=== PATIENT | female | born 1960 | race Caucasian/White ===

== ENCOUNTER 2019-07-24 18:33 | Emergency (ER) | payer MEDICARE, MEDICAID ==
--- OUTSIDE RECORDS SUMMARY | 2019-07-24 18:40 | XMS REPORT | Continuity of Care Document ---
:1960 External Reference #:[id number] Author Name Antoine Garcia MD Address [address] [place] [id number] Care Team Providers Name Role Phone Minor Christianson MD # - Care Team Information Animal Researcher [phone] - Neurology Care Team Information Animal Researcher Merlin Hopper MD - Pulmonary Care Team Information Animal Researcher [phone] Disease Problems Active Problems Provider Date Essential hypertension Onset: 03/28/2011 Hyperlipidemia Antoine Garcia MD Onset: 10/20/2011 Asthma without status asthmaticus Antoine Garcia MD Onset: 2011 Depressive disorder Antoine Garcia MD Onset: 10/20/2011 Epilepsy Antoine Garcia MD Onset: 10/20/2011 Osteochondropathy Antoine Garcia MD Onset: 10/20/2011 Migraine without aura, not refractory Antoine Garcia MD Onset: 04/19 Psoriasis Antoine Garcia MD Onset: 11/29/2018 Bladder muscle dysfunction - overactive Antoine Garcia MD Onset: 10/2018 Social History Type Date Description Comments Sex Unknown ETOH Use Denies alcohol use Tobacco Use Start: Unknown Patient has never smoked Smoking Status Reviewed: 06/09/19 Patient has never smoked Allergies, Adverse Reactions, Alerts Active Allergies Reaction Severity Comments Date Penicillin facial swelling 03/09/2010 Sulfa Antibiotics facial swelling 03/09/2010 Nubain "interacts with the seziure 03/09/2010 medications" Medications Active Medications SIG Qnty Indications Ordering Date Provider Lidocaine apply to back for 30units Antoine Garcia 06/09/2019 5% Patches 12 hours and then MD Damaso off for 12 hours Myrbetriq 1 by mouth every N32.81 Antoine Garcia 11/29/2018 50mg Tablets day MD Damaso ER 24HR Calcium 600-D 1 by mouth twice 180tabs Jose01/21/2018 a day MD Damaso [id number] Tablets Flonase Allergy 2 sprays each 16gm 08/01/2017 Relief nostril daily MD Damaso 50mcg/Act Suspension Acidophilus 1 by mouth bid 30caps Jose06/27/2017 Capsules MD Damaso Fibercon 2 by mouth daily 180tabs Jose06/27/2017 625mg Tablets MD Damaso Amitriptyline HCL take one tablet 90tabs G47.00 Jose03/23/2017 25mg by mouth at MD Damaso Tablets bedtime Advair Diskus 1 puff twice a 3units Jose02/19/2017 day MD Damaso 500-50mcg/Dose Aerosol Escitalopram Oxalate take 1 1/2 135tabs F32.9 Jose02/16/2017 tablets by mouth MD Damaso 20mg Tablets once daily Acetaminophen-Codeine 1-2 tabs per 60tabs M54.89 Jose01/05/2016 #3 mouth four times MD Damaso 300-30mg Tablets a day as needed, Reference #: [id number] Biotin 1 po daily 08/09/2015 5000mcg Capsules MD Damaso Nebulizer dx: asthma 1units J45.909 08/09/2015 Device MD Damaso Nebulizer use as needed 1units J45.909 Jose08/09/2015 Kit/Tubing/Mouthpiece with nebulizer MD Damaso treatment dx: Kit asthma Gaviscon 1-2 tabs prn Jose03/10/2015 MD Damaso Heating Pad Dry Heat Xtra large to use 1units 724.5 Jose2014 prn for back pain MD Damaso Pads Baclofen 1 tab every at 90tabs M54.9 Jose04/29/2014 10mg Tablets bedtime MD Damaso Rizatriptan Benzoate 1 by mouth at the 18tabs [facility] 12/24/2013 onset of headache MD Damaso 5mg Tablets to repeat once if needed in 2 hours Proair HFA two puffs four 8.500gm [facility], 04/14/2013 108(90Base) times a day as MD Gina mcg/Act Aerosol needed Glucosamine 2 po daily [facility] 10/23/2012 Chondroitin Complex MD Damaso Triple Strength Tablets Promethazine HCL take one tablet 90tabs [facility] 05/21/2012 25mg by mouth every 6 MD Damaso Tablets hours as needed for nausea Albuterol Sulfate inhale the 75units J45.998 [facility], 03/18/2012 contents of one MD Gina (2.5mg/3ML) 0.083% vial via Nebulizer nebulizer every 4 hours for wheeze dx: j45.20 Ranitidine HCL take 1 tablet 180tabs [facility] 03/09/2011 150mg twice a day MD Damaso Tablets Iron 1 by mouth twice 180tabs [facility] 2010 325(65Fe) mg a day MD Damaso Tablets Singulair take one tablet 90tabs [facility] 03/09/2010 10mg Tablets by mouth every MD Damaso day Tizanidine HCL 1 by mouth three 270tabs [facility] 03/09/2010 4mg times a day as MD Damaso Tablets needed Multi-Vitamin 1 po daily [facility] 03/09/2010 Tablets MD Damaso Protonix 1 by mouth 90tabs [facility] 03/09/2010 40mg Tablets everyday MD DR Edgar Petityrtematt 1 po daily 30tabs [facility] 03/09/2010 10mg Tablets MD Damaso Rogaine Mens Extra apply bid to area [facility] 03/09/2010 Strength of hair loss MD Damaso 5% Foam Topiramate 1 tab bid 45tabs [facility] 03/09/2010 100mg MD Damaso Tablets Gabapentin 1 po tid [facility] 03/09/2010 800mg MD Damaso Tablets tegretol 2 po am, 2po at 120tabs [facility] 03/09/2010 200mg Tablets 2pm,3 at hs MD Damaso Topiramate 1 by mouth twice Unknown 50mg Tablets a day Simethicone 1 by mouth twice Unknown 125mg a day as needed Capsules Cosentyx 1 injection once Unknown 150mg/ml Soln a month. Prefill Syringe Latanoprost 1 Drop In Each Unknown 0.005% Eye Every Night Solution AT Bedtime History Medications Prednisone 1 tab by mouth 10tabs Gina Schmidt MD 01/09/2019 - 20mg twice a day x 5 03/24/2019 Tablets days Immunizations CPT Code Status Date Vaccine Lot # U-Flu Given 08/01/2018 Influenza,Unspecified [id number] Given 06/27/2017 Influenza Vaccine over 3 Quad Preservative Free [id number] [id number] Given 07/18/2016 Influenza Vaccine over 3 Quad Preservative Free 63353 Given 12/22/2015 Pneumococcal Vaccine [id number] 53906 Given 06/30/2015 Influenza Vaccine over 3 Quad Preservative Free [id number] Given 04/19/2012 Tdap [id number] Vital Signs Date Vital Result Comment 06/09/2019 9:37am Height 66 inches 5'6" Weight 227.00 lb Weight 102.967 kg Body Temperature 97.6 F Body Temperature 36.4 C Heart Rate 98 /min O2 % BldC Oximetry 100 % Respiratory Rate 20 /min BP Systolic 92 mmHg BP Diastolic 62 mmHg Pain Level 0 BMI (Body Mass Index) 36.6 kg/m2 Left Visual Acuity Distance 20/20 With Glasses Right Visual Acuity Distance 20/20 With Glasses Both Visual Acuity Distance 20/20 03/24/2019 1:42pm Height 67 inches 5'7" Weight 230.00 lb Weight 104.328 kg Body Temperature 97.4 F Body Temperature 36.3 C Heart Rate 98 /min O2 % BldC Oximetry 100 % Respiratory Rate 20 /min BP Systolic 102 mmHg BP Diastolic 62 mmHg Pain Level 0 BMI (Body Mass Index) 36.0 kg/m2 Results Test Date Facility Test Result H/L Range Note Laboratory test 06/09/2019 [facility] Thin Prep <pending> finding [phone] W/HPV(Lsil/A BASIL/Asc) Thin Prep W/HPV(Lsil/DAMON/Asc) SEE NOTE 1 Egfr (Calculated) 05/27/2019 [facility] Estimated GFR ( CALCULATED) 2 [phone] Egfr 115 3 Egfr, -Slovenian 133 4 Basic Metabolic 05/27/2019 [facility] Glucose 98 mg/dL 75-100 W/Ratio [phone] BUN 8 mg/dL 7-18 Creatinine, Serum 0.38 mg/dL Low 0.60-1.00 Sodium 137 mmol/L 136-145 Potassium 4.5 mmol/L 3.5-5.1 Chloride 102 mmol/L 98-107 Carbon Dioxide 25 mmol/L 21-32 Calcium 8.6 mg/dL 8.2-10.6 BUN/Creatinine Ratio 21.1 High 6.0-20.0 Anion Gap 10.0 mmol/L 7.0-16.0 Lipid Profile 05/27/2019 [facility] Cholesterol, Total 164 mg/dL 52-200 + LDL Direct [phone] Triglycerides 105 mg/dL 30-200 HDL Cholesterol 63 mg/dL High 40-60 Chol/HDL Cholesterol 2.6 5 LDL Cholesterol, Calc. 80 mg/dL 6 LDL/HDL Cholesterol 1.3 7 1 [employer] DEPARTMENT OF PATHOLOGY or Extension [address] [facility] REPORT PATIENT: REINALDO STEPHENS : 1960 AGE: 58 Y SEX: F ACCT: [id number] PROCEDURE DATE: 06/09/2019 DATE RECEIVED: 06/10/2019 REQUESTING PROVIDER: ANTOINE GARCIA LOCATION: [facility] Case No. [id number] PATIENT DATA: [id number] SPECIMEN SUBMITTED: * * (HPVII) THIN PREP W/HPV (LSIL/ASC/DAMON) * * ENDOCERVICAL RELEVANT HISTORY: Menopause: Y Prev.normal: 09/07/14 SPECIMEN ADEQUACY SATISFACTORY FOR EVALUATION. THE PRESENCE OF TRANSFORMATION ZONE COMPONENT CANNOT BE DETERMINED DUE TO ATROPHIC CHANGES. GENERAL CATEGORIZATION NEGATIVE FOR INTRAEPITHELIAL LESIONS OR MALIGNANCY RECOMMENDATIONS Refer to the corresponding web sites for 2013 updated general recommendation guidelines of [place]. preventive service task force for cervical cancer screening, and www.asccp.org/guidelines. COMMENTS Thin Prep Pap tests are examined with an FDA approved location-guidance system. Thin Prep safety supervisor was unable to read specimen, therefore full manual review was performed. Screened/Rescreened Electronically Signed Reported Date/Time by: by: ELLIE THOMAS, 06/10/2019 12:47 CT(ASCP) Note: The Pap smear is a screening test designed to aid in the detection of premalignant and malignant conditions of the uterine cervix. It is not a diagnostic procedure and should not be used as the sole means of detecting cervical cancer. Both false-positive and false negative reports do occur. 00 UA Pap Smear performed at [employer] Dir: Mode Buck MD, [address] [facility] [address] 01 reagent tender helper [facility] [place] Dir: Merly Walters MD, [address] [facility] [id number] 02 [facility] [place] Dir: Ralf Singh MD, [address] [place] [phone] For inquiries regarding HPV test results, the physician may contact [facility]: [phone] [facility] is a brand used by [employer] a subsidiary of [employer]. . 2 Discuss at appt 06/09/19 3 >59 mL/min/1.73m2 4 >59 mL/min/1.73m2 Note: Persistent reduction for 3 months or more in an eGFR <60 mL/min/1.73m2 defines CKD. Patients with eGFR values >=60 mL/min/1.73m2 may also have CKD if evidence of persistent proteinuria is present. Additional information may be found at www.kidney.org/professionals/kdoqi. 5 CHOL/HDL Risk Ratio Levels MALE FEMALE 1/2 X Average 3.4 3.3 Average 5.0 4.4 2 X Average 9.5 7.0 3 X Average 24.0 11.0 6 Optimal under 100 mg/dl Near or above Optimal 100 - 129 mg/dl Borderline High 130 - 159 mg/dl High 160 - 189 mg/dl Very High above 190 mg/dl 7 LDL/HDL Risk Ratio Levels MALE FEMALE 1/2 X Average 1.0 1.5 Average 3.6 3.2 2 X Average 6.3 5.0 3 X Average 8.0 6.1 Procedures Date Code Description Status 01/09/2019 61735 Bronchospasm Evaluation Completed 12/03/2018 61840856 Colonoscopy Completed 06/24/2018 [id number] Mammogram Completed Medical Devices Description No Information Available Encounters Type Date Location Provider Dx Diagnosis Office Visit 03/24/2019 [facility] Antoine Garcia G47.33 [facility] MD Damaso apnea (adult) (pediatric) N32.81 Overactive bladder J45.20 Mild intermittent asthma, uncomplicated F32.9 Major depressive disorder, single episode, unspecified G43.009 Migraine w/o aura, not intractable, w/o status migrainosus G40.909 Epilepsy, unsp, not intractable, without status epilepticus I10 Essential (primary) hypertension E78.5 Hyperlipidemia, unspecified Office Visit 01/09/2019 [facility] Pulmonology Brayan J45.20 Mild intermittent 10:40a MD Gina asthma, uncomplicated R05 Cough R09.82 Postnasal drip E66.01 Morbid (severe) obesity due to excess calories R91.1 Solitary pulmonary nodule Z68.33 Body mass index (BMI) 33.0-33.9, adult Assessments Date Code Description Provider 06/09/2019 Z00.00 Encounter for general adult medical Antoine Garcia MD examination without abnormal findings 06/09/2019 I10 Essential (primary) hypertension Antoine Garcia MD 06/09/2019 E78.5 Hyperlipidemia, unspecified Antoine Garcia MD 06/09/2019 N32.81 Overactive bladder Antoine Garcia MD 06/09/2019 J45.20 Mild intermittent asthma, uncomplicated Antoine Garcia MD 06/09/2019 F32.9 Major depressive disorder, single Antoine Garcia MD episode, unspecified 06/09/2019 G43.009 Migraine without aura, not intractable, Antoine Garcia MD without status migra 06/09/2019 G40.909 Epilepsy, unspecified, not intractable, Antoine Garcia MD without status epile 05/27/2019 I10 Essential (primary) hypertension Nurse Morley 05/27/2019 E78.5 Hyperlipidemia, unspecified Nurse Morley 03/24/2019 G47.33 Obstructive sleep apnea (adult) Antoine Garcia MD (pediatric) 03/24/2019 N32.81 Overactive bladder Antoine Garcia MD 03/24/2019 J45.20 Mild intermittent asthma, uncomplicated Antoine Garcia MD 03/24/2019 F32.9 Major depressive disorder, single Antoine Garcia MD episode, unspecified 03/24/2019 G43.009 Migraine without aura, not intractable, Antoine Garcia MD without status migra 03/24/2019 G40.909 Epilepsy, unspecified, not intractable, Antoine Garcia MD without status epile 03/24/2019 I10 Essential (primary) hypertension Antoine Garcia MD 03/24/2019 E78.5 Hyperlipidemia, unspecified Antoine Garcia MD 01/09/2019 J45.20 Mild intermittent asthma, uncomplicated Mirela Stacconi, RT 01/09/2019 J45.20 Mild intermittent asthma, uncomplicated Gina Schmidt MD 01/09/2019 R05 Cough Gina Schmidt MD 01/09/2019 R09.82 Postnasal drip Gina Schmidt MD 01/09/2019 E66.01 Morbid (severe) obesity due to excess Gina Schmidt MD calories 01/09/2019 R91.1 Solitary pulmonary nodule Gina Schmidt MD 01/09/2019 Z68.33 Body mass index (BMI) 33.0-33.9, adult Gina Schmidt MD Plan of Treatment Future Appointment(s):12/12/2019 9:45 am - Antoine Garcia MD at [facility]06/09/2019 - Antoine Garcia MDZ00.00 Encounter for general adult medical examination without abnormal findingsComments:A 58 yo female, overall doing well. She is up-to-date on her colonoscopy and pneumonia vaccine. Wehad a discussion about Shingrix vaccine, which she will get at the pharmacy. We will obtain Pap smear in the clinic today, if normal, then we will repeat in 3 years. Ordered mammogram.I10 Essential (primary) hypertensionComments:Her blood pressure is under control currently. She is now off of all antihypertensives. She has done well with her diet and weight loss. No symptoms of hypotension or orthostasis.E78.5 Hyperlipidemia, unspecifiedComments:Continue to work on healthy diet and exercise. Lipids are in adequate control with out a statin.N32.81 Overactive bladderComments:She is scheduled for intervesicular Botox injection with urology. She will also continue Myrbetriq.J45.20 Mild intermittent asthma, uncomplicatedComments:Well controlled with Advair, rare use of Proair. FEV1 has been stable.F32.9 Major depressive disorder, single episode, unspecifiedComments:Well controlled with citalopram.G43.009 Migraine without aura, not intractable, without status migraComments:Well controlled at this time. Do come in clusters and when she takes the medication, rizatriptan, effective for abortive therapy.G40.909 Epilepsy, unspecified, not intractable, without status epileComments:No seizures since her last visit. Follow up with neurology. Functional Status Description No Information Available Mental Status Description No Information Available Referrals Refer to Reason for Referral Status Appt Date Merlin Hopper MD [facility] Closed 04/15/[address] [place] [id number] [phone]
--- OUTSIDE RECORDS SUMMARY | 2019-07-24 18:40 | XMS REPORT | Continuity of Care Document ---
:1960 External Reference #:[id number] Author Name KELLE Wilson Address [address] [place] [address] Care Team Providers Name Role Phone Antoine Garcia M.D. - Family Care Team Information Heat Treat Supervisor Medicine Problems Active Problems Provider Date Bladder muscle dysfunction - overactive Jeffery Garcia MD Onset: 2018 Backache Jeffery Garcia MD Onset: 07/16/2018 Urge incontinence of urine Jeffery Garcia MD Onset: 07/16/2018 Social History Type Date Description Comments Sex Unknown Tobacco Use Start: Unknown Never Smoked Cigarettes Smoking Status Reviewed: 07/21/19 Never Smoked Cigarettes ETOH Use Patient denies alcohol use Allergies, Adverse Reactions, Alerts Active Allergies Reaction Severity Comments Date Penicillin 07/16/2018 Sulfa 07/16/2018 Nalbuphine 07/16/2018 Medications Active Medications SIG Qnty Indications Ordering Date Provider Cipro 1 by mouth twice 10tabs Jeffery Figueredo 06/24/2019 250mg Tablets a day for 5 days, MD Radha pt to start 3 days prior to procedure. Myrbetriq 1 by mouth every 90tabs N32.81 Jeffery Figueredo 08/14/2018 50mg day MD Radha Tablets ER 24HR Calcium 600-D 1 by mouth twice 180tabs Antoine Garcia 01/21/2018 a day Queta Petit 050-295ss-Apty Tablets Flonase Allergy 2 sprays each 16units Antoine Garcia 08/01/2017 Relief nostril daily Queta Petit 50mcg/Act Suspension Acidophilus 1 by mouth bid 30caps Antoine Garcia 06/27/2017 Capsules Queta Petit Fibercon 2 by mouth daily 180tabs [facility] 06/27/2017 625mg Queta Petit Tablets Amitriptyline HCL take one tablet 90tabs G47.00 [place] Antoine 03/23/2017 by mouth at Queta Petit 25mg Tablets bedtime Advair Diskus 1 puff twice a 3units Unknown 02/19/2017 day 500-50mcg/Dose Aerosol Escitalopram Oxalate take 1 /2 135tabs F32.9 [facility] 02/16/2017 tablets by mouth Queta Petit 20mg Tablets once daily Acetaminophen-Codein 1-2 tabs per 60tabs M54.89 [facility] 01/05/2016 e #3 mouth four times Queta Petit 300-30mg Tablets a day as needed Reference #: [id number] Biotin 1 po daily [facility] 08/09/2015 5000mcg Queta Petit Capsules Baclofen 1 tab every at 90tabs M54.9 [facility] 04/29/2014 10mg Tablets bedtime Queta Petit Rizatriptan Benzoate 1 by mouth at the 18tabs [facility] 12/24/2013 onset of headache Queta Petit 5mg Tablets to repeat once if needed in 2 hours Proair HFA two puffs four 8.500units [facility] 04/14/2013 times a day as Queta Petit 108(90Base) mcg/Act needed Aerosol Promethazine HCL take one tablet 90tabs [facility] 05/21/2012 25mg by mouth every 6 Queta Petit Tablets hours as needed for nausea Albuterol Sulfate inhale the 75units J45.998 [facility] 03/18/2012 contents of one Queta Petit (2.5mg/3ML) 0.083% vial via Nebulizer nebulizer every 4 hours for wheeze dx: j45.20 Ranitidine HCL take 1 tablet 180tabs [facility] 03/09/2011 150mg twice a day Queta Petit Tablets Iron 1 by mouth twice 180tabs [facility] 2010 325(65Fe) mg a day Queta Petit Tablets Tegretol 2 po am, 2po at 120tabs [facility] 03/09/2010 200mg 2pm,3 at hs Queta Petit Tablets Gabapentin 1 po tid [facility] 03/09/2010 800mg [facility]eta [place] Tablets Topiramate 1 tab bid 45tabs [facility] 03/09/2010 100mg Queta Petit Tablets Rogaine Mens Extra apply bid to area [facility] 03/09/2010 Strength of hair loss Queta Pet[place] 5% Foam Zyrtec Allergy 1 po daily 30tabs [facility] 03/09/2010 10mg Queta [place] Tablets Protonix 1 by mouth 90tabs [facility] 03/09/2010 40mg Tablets everyday Queta Petit DR Tizanidine HCL 1 by mouth three 270tabs [facility] 03/09/2010 4mg times a day as Queta Petit Tablets needed Singulair take one tablet 90tabs [facility] 03/09/2010 10mg by mouth every Queta Petit Tablets day Simethicone 1 by mouth twice Unknown 125mg a day as needed Capsules Cosentyx 2 injections Unknown 150mg/ml every 4 weeks Soln Prefill Syringe Medications Administered in Office Medication SIG Qnty Indications Ordering Provider Date Botox 100 Units Jeffery Garcia MD 06/30/2019 Injection Immunizations Description No Information Available Vital Signs Date Vital Result Comment 07/21/2019 1:13pm Height 67 inches 5'7" Weight 222.00 lb Weight 100.699 kg BMI (Body Mass Index) 34.8 kg/m2 BP Systolic 107 mmHg BP Diastolic 75 mmHg Heart Rate 93 /min Body Temperature 98.5 F Post Void Residual ml 259 Bladder Scanner, Indication: nocturia 06/30/2019 11:36am BP Systolic 130 mmHg BP Diastolic 78 mmHg Heart Rate 62 /min Results Test Date Facility Test Result H/L Range Note Laboratory test 07/21/2019 Laboratory [place] Urine Culture < pending> finding [address] [place] [address] [phone] Ua Routine 07/21/2019 [facility] Ua Glucose Negative REF TO DR ADDRESS ON ORDER FOR (432)- - Ua Protein Negative Ua Nitrite Positive Ua Leuko Small Ua Blood Negative Ua Color Yellow Ua Ketones Negative Ua Clarity Clear Ua Specific [place] 1.020 1.003-1.030 Ua PH 6.5 5.0-7.5 Ua Bilirubin Negative Ua Urobilinogen 0.2 E.U./dL 0.0-1.0 230 Ua Routine 06/30/2019 [facility] Ua Glucose Negative REF TO DR ADDRESS ON ORDER FOR (315)- - Ua Protein Negative Ua Nitrite Negative Ua Leuko Small Ua Blood Negative Ua Color Yellow Ua Ketones 15 mg/dL Ua Clarity Clear Ua Specific [place] 1.015 1.003-1.030 Ua PH 6.5 5.0-7.5 Ua Bilirubin Negative Ua Urobilinogen 0.2 E.U./dL 0.0-1.0 Laboratory test 06/16/2019 Laboratory [facility] Urine Culture SPECIMEN [address] [place] [address] [address] <[place] [address] NOTE> [phone] Laboratory test 02/10/2019 Laboratory [facility] Urine Culture SPECIMEN [address] [place] [address] [address] <[place] [address] NOTE> [phone] 230 Ua Routine 02/10/2019 [facility] Ua Glucose Negative REF TO DR ADDRESS ON ORDER FOR (315)- - Ua Protein Trace Ua Nitrite Negative Ua Leuko Moderate Ua Blood Trace-intact Ua Color Yellow Ua Ketones Negative Ua Clarity Clear Ua Specific [place] 1.020 1.003-1.030 Ua PH 6.0 5.0-7.5 Ua Bilirubin Negative Ua Urobilinogen 0.2 E.U./dL 0.0-1.0 1 SPECIMEN DESCRIPTION MIDSTREAM URINE,CLEAN CATCH CULTURE RESULTS NO GROWTH REPORT STATUS FINAL 06/17/2019 2 SPECIMEN DESCRIPTION URINE, COLLECTION METHOD NOT SPECIFIED CULTURE RESULTS MIXED UROGENITAL DANIEL; PLEASE SUBMIT A NEW SPEC IMEN IF CLINICALLY INDICATED. REPORT STATUS FINAL 02/12/2019 Procedures Date Code Description Status 07/21/2019 08933 Bladder Scan, Post Voiding Residual Urine Completed 06/30/2019 61509 Cystourethroscopy,/W Injects For Chemodenervation Of Completed The Bladder 02/10/2019 50602 Bladder Scan, Post Voiding Residual Urine Completed 10/01/2014 30782302 Colonoscopy Completed Medical Devices Description No Information Available Encounters Type Date Location Provider Dx Diagnosis Office Visit 07/21/2019 [facility]/ Parker Olivas, N32.81 Overactive bladder 1:15p [facility] N39.41 Urge incontinence R35.0 Frequency of micturition Office Visit 02/10/2019 11:30a [facility] Parker Olivas, N39.41 Urge incontinence Medical/ [facility] R35.0 Frequency of micturition R35.1 Nocturia Assessments Date Code Description Provider 07/21/2019 N32.81 Overactive bladder KELLE Wilson 07/21/2019 N39.41 Urge incontinence KELLE Wilson 07/21/2019 R35.0 Frequency of micturition KELLE Wilson 06/30/2019 N32.81 Overactive bladder Jeffery Garcia MD 06/16/2019 R35.1 Nocturia Jeffery Garcia MD 06/16/2019 R35.1 Nocturia [facility] 06/16/2019 R35.0 Frequency of micturition Jeffery Garcia MD 06/16/2019 R35.0 Frequency of micturition [facility] 02/10/2019 N39.41 Urge incontinence KELLE Wilson 02/10/2019 R35.0 Frequency of micturition KELLE Wilson 02/10/2019 R35.1 Nocturia KELLE Wilson Plan of Treatment 07/21/2019 - Parker Olivas PAN32.81 Overactive bladderNew Labs:230 Ua Routine, Ordered: 07/21/19Comments:Patient presents for postoperative evaluation following intravesical Botox 100 units on 06/30/2019. She tolerated the procedure well, she denies any fever. She feels she is emptying well. She is verypleased with the outcome. She is sleeping better through the night. PVR by bladder scan is elevated at 259 mL. Urinalysis is nitrite positive. She is asymptomatic. I will send this for culture. Hydrate well. She has an underlying history of urge incontinence and frequency, nocturia. 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 She previously tried Myrbetriq 50 mg daily. She does feel that has been helpful and would like a refill.N39.41 Urge incontinenceComments:As noted above.R35.0 Frequency of micturitionComments:As noted above.AllFollow up:I will have schedule call her to set up Botox 100 units in 9 months. Functional Status Description No Information Available Mental Status Description No Information Available Referrals Refer to Dr Reason for Referral Status Appt Date Jeffery Garcia M.D. Botox Created [facility] [place] [address] [phone] Jeffery Garcia M.D. Bottiti Created [address] [place] [address] [phone]
--- OUTSIDE RECORDS SUMMARY | 2019-07-24 18:40 | XMS REPORT | Continuity of Care Document ---
:1960 Author Name Sales Representatives, System Address Unavailable Unavailable , Care Team Providers Name Role Phone Jose RODAS, Antoine Unavailable Jose RODAS, Antoine Unavailable Carlyle James MD, Gui Wheeler Unavailable Brayan RODAS, Gina Unavailable Kayleigh RODAS, Bhavesh Felipe Unavailable Zach Montalvo Unavailable Unavailable Dut NPC, Kenny D Unavailable Unavailable Unavailable Problems ALLERGIC RHINITIS (J30.9) (477.9) Dut, NPC Kenny D ASTHMA WITHOUT STATUS ASTHMATICUS (J45.909) (493.90) Dut, NPC Kenny D BLADDER DYSFUNCTION (N31.9) (596.59) Dut, NPC Kenny D Comments: Muscle dysfunction DEGENERATIVE DISC DISEASE (722.6) Zach Montalvo DEPRESSIVE DISORDER (F32.9) (311) Dut, NPC Kenny D EPILEPSY (G40.909) (345.90) Dut, NPC Kenny D ESSENTIAL HYPERTENSION (I10) (401.9) Dut, NPC Kenny D HYPERLIPEMIA (E78.5) (272.4) Dut, NPC Kenny D IRON DEFICIENCY (E61.1) (280.9) Dut, NPC Kenny D MIGRAINE (G43.909) (346.90) Dut, NPC Kenny D OBESITY (E66.9) (278.00) Dut, [facility] Kenny Nikki JARRET (OBSTRUCTIVE SLEEP APNEA) (G47.33) (327.23) Dut, [facility] Kenny D Prognosis: continuity clerk results no evidence of sleep apnea, and were reviewed with patient. patient understands that a single-night study cannot rule out sleep apnea and that a repeat study maybe needed. She will call us i f she decided to have a repeat test done. patient will follow-up with us on prn basis. This patient's plan of care was approved by Dr. Merlin Hopper covering for Dr. Gui James. as of 20-Jun-2019 OSTEOCHONDROPATHY (M93.90) (732.9) Evaristo, [facility] Kenny Nikki OSTEOPENIA (M85.80) (733.90) Evaristo, [facility] Kenny Nikki PSORIASIS (L40.9) (696.1) Evaristo, [facility] Kenny Nikki Allergies and Adverse Reactions Penicillins (Allergy) Sulfa Antibiotics (Allergy) Medications Acetaminophen-Codeine #3 300-30 MG Oral Tablet; 1-2 4 times a day (300-30 MG) Acidophilus Oral Tablet; 1 two times daily Advair Diskus 500-50 MCG/DOSE Inhalation Aerosol Powder Breath Activated; 1 puff twice a day (500-50 MCG/DOSE) Albuterol Sulfate (2.5 MG/3ML) 0.083% Inhalation Nebulization Solution; inhale every 4 hours for wheezing ((2.5 MG/3ML) 0.083%) Amitriptyline HCl 25 MG Oral Tablet; 1 at bedtime (25 MG) Baclofen 10 MG Oral Tablet; 1 at bedtime (10 MG) Biotin 5000 MCG Oral Capsule; 1 daily (5000 MCG) Calcium Carbonate-Vitamin D 600-400 MG-UNIT Oral Tablet; 1 twice a day (600-400 MG-UNIT) carBAMazepine ER 200 MG Oral Tablet Extended Release 12 Hour; UAD (200 MG) Cosentyx Sensoready 300 Dose 150 MG/ML Subcutaneous Solution Auto-injector; 1 injection monthly (150 MG/ML) Escitalopram Oxalate 20 MG Oral Tablet; 1 1/2 daily (20 MG) Ferrous Sulfate 325 (65 Fe) MG Oral Tablet; 1 two times daily (325 (65 Fe) MG) FiberCon 625 MG Oral Tablet; 2 daily (625 MG) Flonase 50 MCG/ACT Nasal Suspension; 2 sprays each nostril daily (50 MCG/ACT) Gabapentin 800 MG Oral Tablet; 1 three times daily (800 MG) Gaviscon 80-14.2 MG Oral Tablet Chewable; 1-2 Comments: Medication taken as as needed (80-14.2 MG) needed. Glucosamine Maximum Strength 1500 MG Oral Tablet; 2 daily (1500 MG) Latanoprost 0.005 % Ophthalmic Solution; 1 gtt each eye bedtime (0.005 %) Montelukast Sodium 10 MG Oral Tablet; 1 at bedtime (10 MG) Multiple Vitamin Oral Tablet; 1 (one) 1 Myrbetriq 50 MG Oral Tablet Extended Release 24 Hour; 1 daily (50 MG) Nebulizer Device; UAD NEBULIZER SUPPLIES ( Kit) (Free Text); UAD predniSONE 20 MG Oral Tablet; UAD (20 MG) ProAir HFA 108 (90 Base) MCG/ACT Inhalation Aerosol Solution; 2 puffs 4 times a day (108 (90 Base) MCG/ACT) Promethazine HCl 25 MG Oral Tablet; 1 every 6 Comments: Medication taken as hours as needed (25 MG) needed. Protonix 40 MG Oral Tablet Delayed Release; 1 daily (40 MG) raNITIdine HCl 150 MG Oral Tablet; 1 twice a day (150 MG) Rizatriptan Benzoate 5 MG Oral Tablet; 1 at Comments: Medication taken as onset of headaches every 2 hours as needed (5 needed. MG) Rogaine Womens 5 % External Foam; UAD (5 %) Simethicone 125 MG Oral Capsule; 1 two times Comments: Medication taken as daily as needed (125 MG) needed. tiZANidine HCl 4 MG Oral Tablet; 1 three times Comments: Medication taken as daily as needed (4 MG) needed. Topamax 100 MG Oral Tablet; 1 two times daily (100 MG) Topamax 50 MG Oral Tablet; 1 two times daily (50 MG) ZyrTEC Allergy 10 MG Oral Tablet; 1 daily (10 MG) Cetirizine HCl 10 MG Oral Tablet; 1 at bedtime Status: Inactive (10 MG) Singulair 10 MG Oral Tablet; 1 daily (10 MG) Status: Inactive TEGretol 200 MG Oral Tablet; UAD (200 MG) Status: Inactive Topiramate 100 MG Oral Tablet; 1 two times Status: Inactive daily (100 MG) Topiramate 50 MG Oral Tablet; 1 twice a day Status: Inactive (50 MG) Procedures REST OXIMETRY (55436) Status: Completed 15-Apr-2019 Appendectomy Status: Completed Cholecystectomy Status: Completed Flu Vaccine Status: Completed 01-Jul-2018 SMALL BOWEL OBSTRUCTION Status: Completed Tonsillectomy/adenoidectomy Status: Completed Ulcer Surgery Status: Completed Comments: Non Healing Gastric Ulcer [place] Sleepiness ScaleResult: [Situation] Sitting Status: Completed 2018 and Readin = Moderate chance of dozing; Watching Television: 1 = Slight chance of dozing; Sitting inactive in a public place (theatre, meeting): 1 = Slight chance of dozing; As a passenger in a car for an hour without a break: 3 = High chance of dozing; Lying down to rest in the afternoon: 2 = Moderate chance of dozing; Sitting and talking to someone: 0 = Would never doze; Sitting quietly after lunch without alcohol: 3 = High chance of dozing; In a car, while stopping for a few minutes in traffic: 0 = Would never doze [Total] Score: 12 SIMPLE PFT: BASELINE PULMONARY FUNCTION TEST (PFT) Status: Completed 2018 (29808)Result: Hemoptysis: No Immunizations Influenza (3 years and up) On: 01-Jul-2018 Comments:approx date Family History Alzheimer's disease Status: Active Comments: Mother. Cause of Breast Cancer Status: Active Comments: Sister. 2 sisters Cancer Status: Active Comments: Mother. GI Colon Cancer Status: Active Comments: GrandMother Colon Polyps Status: Active Comments: Sister. Congestive Heart Failure Status: Active Comments: Father. Mother. Fathers casue of Hypertension Status: Active Comments: Father. Social History Alcohol use: Denies alcohol use. Caffeine use: Tea. Comments: Green Tea, cold tea, 60oz per day Current work status: Disabled. Marital status: Single. No drug use Tobacco use: Never smoker. Never smoker Female Plan of Treatment CPAP (93424) Start: 15-Apr-2019 Intent POLYSOMNOGRAPHY (13573) Start: 15-Apr-2019 Intent Results No Known Results No Result Information Available Vital Signs 20-Jun-2019 11:29 Temperature 97.6 f Comments: Method: Tympanic Pulse 78 /min Comments: Pattern: Regular Respiration Rate 16 /min Comments: Pattern: Unlabored O2 SAT 98 % Comments: Room air BP Systolic 118 mm[Hg] Comments: Patient Position: Sitting; Cuff Location: Left Arm; Cuff Size: Standard BP Diastolic 80 mm[Hg] Comments: Patient Position: Sitting; Cuff Location: Left Arm; Cuff Size: Standard Weight 236 lb Height 67 in BMI 36.96 kg/m2 BSA 2.17 m2 15-Apr-2019 10:27 Temperature 97 f Comments: Method: Tympanic Pulse 102 /min Comments: Pattern: Regular Respiration Rate 14 /min Comments: Pattern: Unlabored O2 SAT 95 % Comments: Room air BP Systolic 100 mm[Hg] Comments: Patient Position: Sitting; Cuff Location: Left Arm; Cuff Size: Standard BP Diastolic 64 mm[Hg] Comments: Patient Position: Sitting; Cuff Location: Left Arm; Cuff Size: Standard Weight 223 lb Height 67 in BMI 34.93 kg/m2 BSA 2.12 m2 Advance Directives HIPAA - Effective on 04/15/2019. Expiration date unspecified Effective: 2018 Encounters Office Visit 20-Jun-2019 11:30 To 20-Jun-2019 14:06 Encounter Reason: Sleep Evaluation - The onset of the sleep problem has been gradual and has been occurring in a [facility] Office tent pattern for years. The course has been an increasing. Daytime symptoms include daytime sleepiness, decreased energy, fatigue, headaches, sleepiness that affects work and dozing off during the day. The sleep problems have had an impact on the patient's concentration and memory. The patient reports snoring, snoring every night and snoring that wakes self . The patient reports daytime sleepiness , acid taste in mouth, being a light sleeper, being a restless sleeper and jerking or twitching legs. Ancillary symptoms include insomnia, fragmented night sleep and frequent need to nap, while symptoms do not include cataplexy, sleep paralysis, irresistable sleep attacks or hypnagogic hallucinations. Patient awakes 2 times at night and is awake for The patient wakes up for to use bathroom, unknow n reason and awakened by own snoring. During the first few minutes after awakening the patient feels very groggy after waking up. The patient has a regular bed partner. The patient sleeps in variable positions. Encounter Diagnosis: JARRET (OBSTRUCTIVE SLEEP APNEA) Office Visit 15-Apr-2019 10:45 To 15-Apr-2019 11:12 Encounter Reason: Sleep Evaluation - The onset of the sleep problem has been gradual and has been occurring in a [facility] Office tent pattern for years. The course has been an increasing. Daytime symptoms include daytime sleepiness, decreased energy, fatigue, headaches, sleepiness that affects work and dozing off during the day. The sleep problems have had an impact on the patient's concentration and memory. The patient reports snoring, snoring every night and snoring that wakes self . The patient reports daytime sleepiness, a biju taste in mouth, being a light sleeper, being a restless sleeper and jerking or twitching legs. Ancillary symptoms include insomnia, fragmented night sleep and frequent need to nap, while symptoms do not include cataplexy, sleep paralysis, irresistable sleep attacks or hypnagogic hallucinations. Patient awakes 2 times at night and is awake for The patient wakes up for to use bathroom, unknown reas on and awakened by own snoring. During the first few minutes after awakening the patient feels very groggy after waking up. The patient has a regular bed partner. The patient sleeps in variable positions. Encounter Diagnosis: JARRET (OBSTRUCTIVE SLEEP APNEA), OBESITY Payers Medicare [facility] [address] [facility] [address] [place] Group Number: [id number] tel: Medicaid/[employer] C [address] [facility] [address] [place] Group Number: [id number] tel: REINALDO ETIENNE [address] [facility] [address] [facility] [id number] tel:
[2019-07-24 19:04] VITALS: BP 111/35
--- NOTE | 2019-07-24 20:02 | UC ---
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 Pt has the chills. Symptoms started Sunday and have been getting progressively worse. Also having lower abdominal pain. Pt states she had a seizure this afternoon, blaming it on lack of sleep and infection." -sx started 07/21, worsening the following day. she tried to resolve sx with drinking lots of fluids but unsuccessfully. + chills. no nausea/vomiting. + mild body aches. no LBP. -here w/ her sister - History Of Current Complaint Chief Complaint: UCGU Stated Complaint: URINARY Time Seen by Provider: 07/24/19 19:40 Pain Intensity: 4 - Allergies/Home Medications Allergies/Adverse Reactions: Allergies Allergy/AdvReac Type Severity Reaction Status Date / Time nalbuphine [From Nubain] Allergy See Comment Verified 07/24/19 19:04 Penicillins Allergy Swelling Verified 07/24/19 19:04 Of Face,Lips,& Throat Sulfa (Sulfonamide Allergy Swelling Verified 07/24/19 19:04 Antibiotics) Of Face,Lips,& Throat Home Medications: Home Medications Amitriptyline TAB* [Elavil TAB*] 25 mg PO BEDTIME 07/24/19 [History Confirmed ] Baclofen TAB* [Lioresal TAB*] 10 mg PO BEDTIME 07/24/19 [History Confirmed 07/24] Bimatoprost 0.01% OPHTH (NF) [Lumigan 0.01% OPHTH (NF)] 1 drop BOTH EYES QPM [History Confirmed 07/24/19] Biotin 5,000 mcg PO DAILY 07/24/19 [History Confirmed 07/24/19] Calcium Carbonate/Vitamin D3 [Calcium 600-Vit D3 400 Caplet] 1 tab PO BID [History Confirmed 07/24/19] Carbamazepine [Carbatrol] 200 mg PO DAILY 07/24/19 [History Confirmed 07/24/19] Cetirizine HCl [Zyrtec] 10 mg PO BEDTIME 07/24/19 [History Confirmed 07/24/19] Escitalopram * [Lexapro *] 20 mg PO DAILY 07/24/19 [History Confirmed 07/24/19] Ferrous Sulfate TAB* 325 mg PO BID 07/24/19 [History Confirmed 07/24/19] Fluticasone NASAL SPRAY 50MCG* [Flonase NASAL SPRAY 50MCG*] 2 spray BOTH NARES DAILY 07/24/19 [History Confirmed 07/24/19] Fluticasone-Salmeterol 500-50* [Advair Diskus 500-50*] 1 puff INH BID 07/24/19 [ History Confirmed 07/24/19] Gabapentin CAP(*) [Neurontin 400 mg CAP(*)] 800 mg PO TID 07/24/19 [History Confirmed 07/24/19] Gluc Mckeon/Chondro Mckeon A/Vit C/Mn [Glucosamine-Chondroitin Cap] 1 each PO BID [History Confirmed 07/24/19] L.acidoph,Paracasei, B.lactis [Probiotic] 1 each PO BID 07/24/19 [History Confirmed 07/24/19] Mirabegron [Myrbetriq] 50 mg PO BEDTIME 07/24/19 [History Confirmed 07/24/19] Montelukast Sodium TAB* [Singulair 10 MG TAB*] 10 mg PO DAILY 07/24/19 [History Confirmed 07/24/19] Multivit with Iron,Minerals [Super Multiple] 1 each PO DAILY 07/24/19 [History Confirmed 07/24/19] Pantoprazole TAB * [Protonix TAB*] 40 mg PO DAILY 07/24/19 [History Confirmed ] Secukinumab [Cosentyx Pen] 150 mg SQ MONTHLY 07/24/19 [History Confirmed ] Topiramate TAB(*) [Topamax 100 mg tab] 100 mg PO BID 07/24/19 [History Confirmed 07/24/19] Topiramate [Topamax] 50 mg PO BID 07/24/19 [History Confirmed 07/24/19] raNITIdine HCl [Ranitidine HCl] 150 mg PO BID 07/24/19 [History Confirmed ] PMH/Surg Hx/FS Hx/Imm Hx Previously Healthy: Yes - Surgical History Surgical History: Yes Surgery Procedure, Year, and Place: vagotomy and antectomy with billroth for gastric outlet obstruction, tonsils, gallbladder - Social History Alcohol Use: None Substance Use Type: None Smoking Status (MU): Never Smoked Tobacco Review of Systems All Other Systems Reviewed And Are Negative: Yes Constitutional: Positive: Chills, Fatigue Skin: Positive: Negative Eyes: Positive: Negative ENT: Positive: Negative Respiratory: Positive: Negative Cardiovascular: Positive: Negative Gastrointestinal: Positive: Negative Genitourinary: Positive: Dysuria, Frequency, Urgency. Negative: Hematuria, Abnormal Bleeding Motor: Positive: Negative Neurovascular: Positive: Negative Musculoskeletal: Positive: Negative Neurological: Positive: Negative Psychological: Positive: Negative Is Patient Immunocompromised?: No Physical Exam Triage Information Reviewed: Yes Appearance: Well-Appearing, No Pain Distress, Well-Nourished - very pleasant. Vital Signs: Initial Vital Signs Temp 97.0 F 07/24/19 18:56 Pulse 81 07/24/19 18:56 Resp 18 07/24/19 18:56 BP 111/35 07/24/19 18:56 Pulse Ox 96 07/24/19 18:56 Vital Signs Reviewed: Yes Eye Exam: Normal ENT Exam: Normal ENT: Positive: Pharynx normal Neck exam: Normal Neck: Positive: Supple, Nontender, No Lymphadenopathy Respiratory Exam: Normal Respiratory: Positive: Lungs clear, Normal breath sounds, No respiratory distress, No accessory muscle use Cardiovascular Exam: Normal Abdomen Description: Positive: Other: - + suprapubic tendreness.. Negative: CVA Tenderness (R), CVA Tenderness (L), Distended, Guarding, Peritoneal Signs Musculoskeletal Exam: Normal Neurological: Positive: Other: - not postictal. Psychological Exam: Normal Skin Exam: Normal Complaint Female Dx - Course Course Of Treatment: UA + 1 LE. await cx -has taken keflex w/o any allergic reaction. tolerates well. - Differential Dx/Diagnosis Differential Diagnosis/HQI/PQRI: Renal Colic, Urinary Tract Infection Provider Diagnosis: Dysuria Discharge ED - Sign-Out/Discharge Documenting (check all that apply): Patient Departure All imaging exams completed and their final reports reviewed: No Studies - Discharge Plan Condition: Stable Disposition: HOME Prescriptions: Cephalexin CAP* [Keflex CAP*] 500 mg PO TID #30 cap Patient Education Materials: Dysuria (ED) Referrals: Antoine Garcia [Primary Care Provider] - 7 Days Additional Instructions: You should follow up with your PCP when you are done with the antibiotic. However, you should be seen sooner in an ER if your symptoms worsen, develop fever/chills/nausea/vomiting/lightheaded or dizzy. - Billing Disposition and Condition Condition: STABLE Disposition: Home
== END 2019-07-24 20:21 | disposition home or self-care (01) ==
LOC: UCCORT 18:33
DX: R30.0 Dysuria (principal); R35.0 Frequency of micturition; R39.15 Urgency of urination; R10.819 Abdominal tenderness, unspecified site; R53.83 Other fatigue; R52 Pain, unspecified; Z88.2 Allergy status to sulfonamides; Z88.0 Allergy status to penicillin; Z88.8 Allergy status to other drugs, medicaments and biological substances
CPT/HCPCS: 81003; 87086; 99202; G0463